=== PATIENT | male | born 1980 | race African-American/Black ===

== ENCOUNTER 2017-01-14 17:29 | Emergency (ER) | payer SELFPAY ==
[~2017-01-14] VITALS: Ht 182.9 cm; Wt 62.6 kg
[2017-01-14 17:37] VITALS: BP 117/78
[2017-01-14 18:04] LABS: CONDITION Y; Hemoglobin 13.5 g/dL (13.5-17.5); Mean Corpuscular Hemoglobin 31.9 pg (28.0-32.0); Mean Corpuscular Hgb Conc. 33.7 g/dL (32.0-36.0); Mean Corpuscular Volume 94.6 fL (80.0-100.0); Mean Platelet Volume 8.9 fL (7.4-10.4); Platelet Count (auto) 198 10^3/uL (140-450); White Blood Cell 4.5 10^3/uL (4.4-10.8)
[2017-01-14 18:14] LABS: Metamyelocytes % 0; Myelocytes % 0; Promyelocytes % 0; Reactive Lymphocytes 0
[2017-01-14 18:34] LABS: Anisocytosis Moderate; Platelet Estimate Adequate
[2017-01-14 18:40] LABS: Albumin 3.4 g/dL (3.4-5.0); BUN/Creatinine Ratio 13.6; Bilirubin, Total 0.2 mg/dL (0.2-1.0); Calcium 8.6 mg/dL (8.5-10.1); Potassium 3.9 mmol/L (3.5-5.1); Total Protein 7.2 g/dL (6.4-8.2)
== END 2017-01-14 22:44 | disposition left against medical advice (07) ==
LOC: ER 17:34
DX: R10.9 Unspecified abdominal pain (principal); Z53.21 Procedure and treatment not carried out due to patient leaving prior to being seen by health care provider
CPT/HCPCS: 36415; 80053; 85007; 85027